=== PATIENT | female | born 1990 | race Caucasian/White ===

== ENCOUNTER 2023-03-20 11:10 | Inpatient (IN) | payer MEDICAID ==
[~2023-03-20] VITALS: Ht 165.1 cm; Wt 90.3 kg
[2023-03-20] MEDS ORDERED: BUTORPHANOL TARTRATE 2 MG/1 ML VIAL IV PRN ×2 (12:00)
[2023-03-20] MEDS ORDERED: PROMETHAZINE HCL 25 MG/ML 1ML IV PRN (12:00)
[2023-03-20 12:09] LABS: Fern Testing Positive
[2023-03-20 12:15] LABS: Urine Bacteria FEW /hpf (None Seen); Urine Blood 1+ /uL (Negative); Urine Clarity HAZY (Clear); Urine Color Yellow (Yellow); Urine Protein, UAD TRACE (Negative); Urine Specific Gravity 1.018 (1.001-1.035); Urine WBC 13 /hpf (0 - 5); Urine pH 7.5 (5.0-8.0)
[2023-03-20 12:26] LABS: Amphetamine Screen, Urine Neg (NEGATIVE); Barbiturate Scree,Urine Neg (NEGATIVE); Benzodiazephine Screen, Urine Neg (NEGATIVE); Cannabinoid Screen, Urine Neg (NEGATIVE); Cocaine Screen, Urine Neg (NEGATIVE); Opiate Scree,Urine Neg (NEGATIVE); Phencyclidine Screen, Urine Neg (NEGATIVE)
[2023-03-20] MEDS: CLINDAMYCIN 600MG IV 50 ML IV STA (12:34)
[2023-03-20] MEDS: LACTATED RINGER'S 1,000 ML IV SCH (12:35)
[2023-03-20 12:59] LABS: Basophils # (auto) 0 10 ^3/uL (0-0.2); Basophils % (auto) 0.3 % (0.0-2.0); Eosinophils # (auto) 0.1 10 ^3/uL (0-0.8); Eosinophils % (auto) 0.6 % (0.0-7.0); Hematocrit 34.1 % (36.0-46.0); Hemoglobin 11.6 g/dL (12.2-16.2); Lymphocytes # (auto) 1.8 10 ^3/uL (0.4-5.4); Lymphocytes % (auto) 21.2 % (10.0-50.0); Mean Corpuscular Hemoglobin 29.1 pg (28.0-32.0); Mean Corpuscular Hgb Conc. 33.9 g/dL (32.0-36.0); Mean Corpuscular Volume 85.9 fL (80.0-100.0); Monocytes # (auto) 0.6 10 ^3/uL (0-1.3); Monocytes % (auto) 6.9 % (0.0-12.0); Neutrophils # (auto) 6.2 10 ^3/uL (1.6-8.6); Red Blood Cells 3.97 10^6/uL (4.0-5.20); Red Cell Distribution Width 13.9 % (11.8-14.3); White Blood Cell 8.7 10^3/uL (4.4-10.8)
[2023-03-20] MEDS: NALOXONE HCL 0.4 MG/ML VIAL IV ONE (13:00)
[2023-03-20] MEDS: fentaNYL CITRATE 100 MCG/2 ML VL IV ONE (13:00)
[2023-03-20] MEDS: ePHEDrine SULFATE 50 MG/ML AMP IV ONE (13:00)
[2023-03-20] MEDS: ROPIVACAINE HCL 0 ML ONE (13:10)
[2023-03-20 13:11] LABS: Alkaline Phosphatase 112 U/L (46-116); Anion Gap 8 (5-15); Aspartate Aminotransferase 16 U/L (13-40); Bilirubin, Total 0.8 mg/dL (0.2-1.0); Calcium 9.3 mg/dL (8.5-10.1); Carbon Dioxide 21 mmol/L (20-30); Chloride 108 mmol/L (98-107); Glucose 84 mg/dL (74-106); INR 0.96 (0.9-1.15); Partial Thromboplastin Time 25.9 SEC (24.5-34.5); Prothrombin Time 10.1 sec (9.3-11.8); Sodium 137 mmol/L (136-145)
[2023-03-20 13:12] LABS: Total Protein 6.7 g/dL (5.7-8.2)
[2023-03-20 13:22] LABS: Alanine Aminotransferase < 9 U/L (7-40); BUN/Creatinine Ratio 9.3 (10.0-20.0); Blood Urea Nitrogen < 5 mg/dL (9-23)
[2023-03-20] MEDS: LACTATED RINGER'S 1,000 ML IV ONE (13:29)
[2023-03-20] MEDS: LACT. RINGERS/OXYTOCIN 20UNITS 500 ML IV ONE ×2 (13:59→14:18)
[2023-03-20] MEDS: miSOPROStol 100 mcg TAB ONE (14:03)
[2023-03-20] MEDS: LIDOCAINE 2%HCL (LOCAL ANESTH.) INJ 20ML MDV IJ PRN (14:03)
[2023-03-20] MEDS: METHYLERGONOVINE MALEATE 0.2 MG/ML AMP IM ONE ×2 (14:03→14:13)
[2023-03-20] MEDS: PHISODERM TOP SOLN 240ML BTL TOP PRN (14:10)
[2023-03-20] MEDS: DERMOPLAST 60ML BOTTLE TOP PRN (14:10)
[2023-03-20] MEDS: WITCH HAZEL-GLYCERIN PAD TOP PRN (14:10)
[2023-03-20 17:01] VITALS: BP 116/73; PULSE 75; RESP 18; TEMP 97.8; O2SAT 100
[2023-03-20 17:15] VITALS: BP 122/73; PULSE 80; RESP 16; TEMP 99.1; O2SAT 98
[2023-03-20 19:00] VITALS: BP 105/63; PULSE 90; RESP 20; TEMP 99.2; O2SAT 96
[2023-03-20] MEDS ORDERED: CLINDAMYCIN 600MG IV 50 ML IV SCH (21:00)
[2023-03-20] MEDS: IBUPROFEN 600 MG TAB PO PRN (22:27)
[2023-03-20 22:46] VITALS: BP 110/65; PULSE 85; RESP 16; TEMP 98.5; O2SAT 95
[2023-03-21 03:00] VITALS: BP 100/58; PULSE 74; RESP 16; TEMP 98.2; O2SAT 95
[2023-03-21 07:00] VITALS: BP 103/60; PULSE 70; RESP 16; TEMP 97.6; O2SAT 97
[2023-03-21 11:00] VITALS: BP 127/70; PULSE 83; RESP 16; TEMP 97.5; O2SAT 97
[2023-03-21 11:07] LABS: Rubella Antibodies, IgG <0.90 index (Immune >0.99)
[2023-03-21] MEDS: ACETAMINOPHEN 325 MG TAB PO PRN (11:57)
[2023-03-21 15:00] VITALS: BP 114/68; PULSE 76; RESP 17; TEMP 97.9; O2SAT 97
[2023-03-23 05:07] LABS: RPR Non Reactive (Non Reactive)
[2023-03-23 19:06] LABS: Treponema pallidum Ab (FTA-Ab) Non Reactive (Non Reactive)
== END 2023-03-21 17:56 | disposition home or self-care (01) | DRG 560 ==
LOC: LDRP 11:10 → OBSVTOIN 11:53 → LDRP 12:02
PROVIDERS: ADMIT Obstetrics & Gynecology; ATTEND Obstetrics & Gynecology
PROC: 10E0XZZ Delivery of Products of Conception, External Approach (ICD-10-PCS; principal; 2023-03-20)
PROC: 0HQ9XZZ Repair Perineum Skin, External Approach (ICD-10-PCS; 2023-03-20)
DX: O60.14X0 Preterm labor third trimester with preterm delivery third trimester, not applicable or unspecified (principal); Z37.0 Single live birth; O70.0 First degree perineal laceration during delivery; Z3A.36 36 weeks gestation of pregnancy; Z88.0 Allergy status to penicillin
CPT/HCPCS: 36415; 59025; 59409; 76805; 80053; 80307; 81001; 81002; 84112; 85025; 85610; 85730; 86592; 86703; 86762; 86850; 86900; 86901; 87340; 94760; 96360; 96361; 96365; 96366; 96372; G0378; J2590; J3490